=== PATIENT | female | born 1995 | race African-American/Black ===

== ENCOUNTER 2022-04-20 15:36 | Emergency (ER) | payer MEDICAID, OTHER ==
[~2022-04-20] VITALS: Ht 162.6 cm; Wt 74.8 kg
--- NOTE | 2022-04-20 16:07 | NUR ---
R SHOULDER PAIN, POSSIBLE DISLOCATION S/P REACHING OVERHEAD 1 HOUR AGO. PAIN IS 10/10 ON PAIN SCALE. PT STATED SHE DISLOCATED THE SAME SHOULDER PREVIOUSLY. ATTACHED TO MONITOR. AWAITING MD LANE.
[2022-04-20] MEDS ORDERED: MORPHINE SULFATE INJ 4 MG/ML DISP.SYRIN ONE (16:13)
[2022-04-20] MEDS ORDERED: ONDANSETRON HCL/PF 4 MG/2 ML VIAL ONE (16:13)
[2022-04-20] MEDS ORDERED: MORPHINE SULFATE INJ 2 MG/ML DISP.SYRIN IV ONE (16:30)
[2022-04-20] MEDS ORDERED: IV NS 0.9% 1,000 ML IV ONE (16:30)
[2022-04-20] MEDS ORDERED: PROPOFOL 1,000 MG/100 ML BOTTLE IV ONE (16:30)
[2022-04-20] MEDS ORDERED: ONDANSETRON HCL/PF - ER 4 MG/2 ML VIAL IV ONE (16:30)
[2022-04-20] MEDS ORDERED: PROPOFOL 20 ML IV ONE (16:54)
--- NOTE | 2022-04-20 17:33 | NUR ---
CALLED IN FOR CONSTANT SEDATIO.
--- NOTE | 2022-04-20 17:34 | NUR ---
CALLED IN FOR CONSTANT SEDATION. PATIENT PLACED ON NRB 15 L O2. PATIENT REMAIN STABLE THROUGH OUT PROCEDURE. PATIENT REMAIN STABLE AFTER SEDATION.
[2022-04-20] MEDS ORDERED: IBUP-1957 PO (17:59)
[2022-04-20] MEDS ORDERED: KETOROLAC TROMETHAMINE INJ 30 MG/ML VIAL IV ONE (18:00)
--- NOTE | 2022-04-20 18:01 | NUR ---
PT IS A&OX4, VITALS ARE WITHIN NORMAL LIMITS.
[2022-04-20] MEDS ORDERED: KETOROLAC TROMETHAMINE 15 MG/ML VIAL ONE (18:08)
--- NOTE | 2022-04-20 19:14 | NUR ---
CALLED BOYFRIEND SVEN [phone] TO REFERRAL COORDINATOR PT. IV removed. Catheter intact and site benign. Pressure and 4x4 applied to site. No bleeding noted.Patient discharged to home in stable condition. Written and verbal after care instructions given. Patient verbalizes understanding of instruction.
[2022-04-20 19:16] VITALS: BP 149/91
== END 2022-04-20 19:16 | disposition home or self-care (01) ==
LOC: ER 15:38
DX: S43.004A Unspecified dislocation of right shoulder joint, initial encounter (principal); X58.XXXA Exposure to other specified factors, initial encounter; Y93.89 Activity, other specified; Y92.89 Other specified places as the place of occurrence of the external cause; Y99.8 Other external cause status
CPT/HCPCS: 99285; 23650; 96374; 96375; 96361; 99152; 73030 ×2; J2704; J2270; J2405 ×2; J7030; J1885; G0500